=== PATIENT | female | born 1985 | race Caucasian/White ===

== ENCOUNTER 2020-04-26 13:17 | Emergency (ER) | payer BC, MEDICAID ==
[~2020-04-26] VITALS: Ht 172.7 cm; Wt 89.8 kg
[2020-04-26 13:17] VITALS: BP_SYST 111
[~2020-04-26 13:17] MED LIST: PREN1TAB49 PO
--- NOTE | 2020-04-26 15:30 | NUR ---
Patient to ER bed 8 to gown for evaluation. Side rails up. Report given to Brett MACIAS.
--- NOTE | 2020-04-26 15:40 | NUR ---
Pt came to ER for L knee pain for the last few weeks and lower abd cramping. Pt resting in [facility], [facility], no other complaints
--- NOTE | 2020-04-26 15:45 | NUR ---
DWIGHT Reece at bedside examining patient.
[2020-04-26 16:09] LABS: BASOPHILS % (AUTO) 0.5 % (0.0-2.0); EOSINOPHILS # (AUTO) 0.2 K/uL (0.0-0.4); EOSINOPHILS % (AUTO) 2.5 % (0.0-4.0); HEMATOCRIT 36.7 % (36-48); HEMOGLOBIN 12.3 g/dL (12.0-16.0); LYMPHOCYTES # (AUTO) 1.7 K/uL (1.0-5.5); LYMPHOCYTES % (AUTO) 21.7 % (20.5-51.5); MEAN CORPUSCULAR HEMOGLOBIN 29 pg (27-31); MEAN CORPUSCULAR HGB CONC 34 % (32-36); MEAN CORPUSCULAR VOLUME 86 fL (79.0-98.0); MONOCYTES # (AUTO) 0.3 K/uL (0.0-1.0); MONOCYTES % (AUTO) 4.1 % (1.7-9.3); NEUTROPHILS # (AUTO) 5.7 K/uL (1.8-7.7); NEUTROPHILS % (AUTO) 71.2 % (40.0-70.0); PLATELET COUNT (AUTO) 312 K/uL (130-430); RED BLOOD CELL COUNT(AUTO) 4.28 MIL/uL (4.2-6.2); RED CELL DISTRIBUTION WIDTH 14.6 % (9.0-15.0)
[2020-04-26 16:24] LABS: CALCIUM 8.8 mg/dL (8.4-11.0); CREATININE 0.65 mg/dL (0.55-1.30); POTASSIUM 3.9 mmol/L (3.5-5.1)
--- NOTE | 2020-04-26 16:42 | NUR ---
[facility] at [facility] time VSS no distress
[2020-04-26 16:52] LABS: BILIRUBIN,URINE NEGATIVE (NEGATIVE); BLOOD, URINE 2+ (NEGATIVE); COLOR,URINE YELLOW (YELLOW); GLUCOSE,URINE NEGATIVE (NEGATIVE); KETONES,URINE NEGATIVE (NEGATIVE); LEUKOCYTE ESTERASE ,URINE 2+ (NEGATIVE); NITRITE, URINE NEGATIVE (NEGATIVE); PH,URINE 6.5 (5.0-8.0); PROTEIN URINE NEGATIVE (NEGATIVE)
[2020-04-26 17:00] LABS: CLARITY/URINE HAZY (CLEAR)
[2020-04-26 17:01] LABS: BACTERIA,URINE MODERATE /HPF (None Seen); MUCUS,URINE 1+ /LPF (None Seen); WBC,URINE 20-50 /HPF (0-3)
[2020-04-26 17:35] VITALS: BP_SYST 111
--- NOTE | 2020-04-26 17:36 | NUR ---
Patient given written and verbal discharge instructions and verbalizes understanding. ER MD discussed with patient the results and treatment provided. Patient in stable condition. ID arm band removed. Rx of Cephalexin given. Patient educated on pain management and to follow up with PMD. Pain Scale 0/10. Opportunity for questions provided and answered. Medication side effect fact sheet provided.
== END 2020-04-26 17:35 | disposition home or self-care (01) ==
LOC: SED 13:17
DX: O26.891 Other specified pregnancy related conditions, first trimester (principal); M25.561 Pain in right knee; Z3A.01 Less than 8 weeks gestation of pregnancy
CPT/HCPCS: 36415; 76801; 76817; 80048; 81000-TC; 84702-TC; 85025; 86886; 86900; 86901; 87086; 93971; 99285

== ENCOUNTER 2020-06-08 11:29 | Emergency (ER) | payer BC ==
[~2020-06-08] VITALS: Ht 172.7 cm; Wt 89.8 kg
[2020-06-08 11:46] VITALS: BP_SYST 124
[2020-06-08] MEDS ORDERED: ACETAMINOPHEN 325 MG TABLET PO ONE (12:15)
[2020-06-08 12:31] LABS: BASOPHILS % (AUTO) 0.5 % (0.0-2.0); EOSINOPHILS # (AUTO) 0.4 K/uL (0.0-0.4); EOSINOPHILS % (AUTO) 5.5 % (0.0-4.0); HEMATOCRIT 33.5 % (36-48); HEMOGLOBIN 11.7 g/dL (12.0-16.0); LYMPHOCYTES # (AUTO) 1.4 K/uL (1.0-5.5); LYMPHOCYTES % (AUTO) 18.8 % (20.5-51.5); MEAN CORPUSCULAR HEMOGLOBIN 30 pg (27-31); MEAN CORPUSCULAR HGB CONC 35 % (32-36); MEAN CORPUSCULAR VOLUME 86 fL (79.0-98.0); MONOCYTES # (AUTO) 0.3 K/uL (0.0-1.0); MONOCYTES % (AUTO) 4.3 % (1.7-9.3); NEUTROPHILS # (AUTO) 5.3 K/uL (1.8-7.7); NEUTROPHILS % (AUTO) 70.9 % (40.0-70.0); PLATELET COUNT (AUTO) 269 K/uL (130-430); RED CELL DISTRIBUTION WIDTH 13.6 % (9.0-15.0); WHITE BLOOD COUNT (AUTO) 7.5 K/uL (4.8-10.8)
[2020-06-08 13:18] LABS: CALCIUM 8.8 mg/dL (8.4-11.0); CREATININE 0.59 mg/dL (0.55-1.30); POTASSIUM 3.8 mmol/L (3.5-5.1)
[2020-06-08 14:51] VITALS: BP_SYST 124
== END 2020-06-08 14:51 | disposition home or self-care (01) ==
LOC: SED 11:29
DX: O26.891 Other specified pregnancy related conditions, first trimester (principal); R10.2 Pelvic and perineal pain; Z3A.13 13 weeks gestation of pregnancy
CPT/HCPCS: 36415; 76801; 80048; 81002; 81025; 84702-TC; 85025; 86886; 86900; 86901; 99284

== ENCOUNTER 2021-12-14 16:24 | Emergency (ER) | payer BC ==
[~2021-12-14] VITALS: Ht 172.7 cm; Wt 94.8 kg
[~2021-12-14 16:24] MED LIST changes: +PRED20TA PO
[2021-12-14 16:30] VITALS: BP_SYST 100
--- NOTE | 2021-12-14 16:30 | NUR ---
Pt. came in with c/o pain to right elbow for 1 to 2 weeks with no known cause or acute injury, no swelling seen, rates pain 3/10
--- NOTE | 2021-12-14 16:30 | NUR ---
Patient to ER bed 7 for triage and evaluation. Side rails up. Report given to Nikhil.
--- NOTE | 2021-12-14 16:32 | NUR ---
ER at bedside examining patient.
[2021-12-14 16:50] LABS: BASOPHILS # (AUTO) 0.1 K/uL (0.0-0.2); BASOPHILS % (AUTO) 0.8 % (0.0-2.0); EOSINOPHILS # (AUTO) 0.2 K/uL (0.0-0.4); HEMATOCRIT 35.8 % (36-48); LYMPHOCYTES # (AUTO) 1.7 K/uL (1.0-5.5); LYMPHOCYTES % (AUTO) 20.8 % (20.5-51.5); MEAN CORPUSCULAR HEMOGLOBIN 27 pg (27-31); MEAN CORPUSCULAR HGB CONC 33 % (32-36); MEAN CORPUSCULAR VOLUME 80 fL (79.0-98.0); MONOCYTES # (AUTO) 0.5 K/uL (0.0-1.0); MONOCYTES % (AUTO) 5.9 % (1.7-9.3); NEUTROPHILS # (AUTO) 5.6 K/uL (1.8-7.7); NEUTROPHILS % (AUTO) 69.5 % (40.0-70.0); PLATELET COUNT (AUTO) 286 K/uL (130-430); RED BLOOD CELL COUNT(AUTO) 4.47 MIL/uL (4.2-6.2); RED CELL DISTRIBUTION WIDTH 14.7 % (9.0-15.0)
[2021-12-14] MEDS: KETOROLAC TROMETHAMINE 60 MG/2 ML VIAL IM ONE (17:03)
[2021-12-14 17:07] LABS: ANION GAP 8 (5-15); CALCIUM 8.1 mg/dL (8.4-11.0); CHLORIDE 102 mmol/L (98-107); CREATININE 0.64 mg/dL (0.55-1.30); GLUCOSE 83 mg/dL (70-99); POTASSIUM 4.1 mmol/L (3.5-5.1); SODIUM SERUM 137 mmol/L (136-145); UREA NITROGEN, BLOOD 9 mg/dL (8-21)
[2021-12-14 17:08] LABS: GFR AFRICAN AMERICAN 137 mL/min (>90)
[2021-12-14 17:11] LABS: ALANINE AMINOTRANSFERASE 86 U/L (12-78); ALBUMIN 3.3 g/dL (3.4-4.8); ASPARTATE AMINOTRANSFERASE 46 U/L (10-37); TOTAL BILIRUBIN 0.4 mg/dL (0.0-1.0); URIC ACID 5.4 mg/dL (2.4-7.0)
[2021-12-14 17:20] LABS: C-REACTIVE PROTEIN QUANT < 0.2 mg/dL (0-0.5)
--- NOTE | 2021-12-14 17:27 | NUR ---
Md aware that quant HCG back- stated to cancel urine dip.
[2021-12-14] MEDS ORDERED: HYDR-3917 PO (17:44)
[2021-12-14] MEDS ORDERED: IBUP-1969 PO (17:44)
--- NOTE | 2021-12-14 17:55 | NUR ---
Patient given written and verbal discharge instructions and verbalizes understanding. ER MD discussed with patient the results and treatment provided. Patient in stable condition. ID arm band removed. Rx of given. Patient educated on pain management and to follow up with PMD. Opportunity for questions provided and answered. Medication side effect fact sheet provided.
[2021-12-14 19:31] LABS: ERYTHROCYTE SEDIMENTATION RATE 13 MM/HR (0-20)
== END 2021-12-14 18:04 | disposition home or self-care (01) ==
LOC: SED 16:24
DX: M13.0 Polyarthritis, unspecified (principal); I10 Essential (primary) hypertension
CPT/HCPCS: 36415; 73080; 80053; 84550; 84703; 85025; 85651; 86140; 96372; 99284; J1885

== ENCOUNTER 2021-12-20 15:41 | Emergency (ER) | payer BC ==
[~2021-12-20] VITALS: Ht 172.7 cm; Wt 94.8 kg
[~2021-12-20 15:41] MED LIST changes: +HYDR-3917 PO; +IBUP-1969 PO
[2021-12-20 15:56] VITALS: BP_SYST 108
[2021-12-20] MEDS ORDERED: NAPR-1169 PO (17:45)
[2021-12-20 17:50] VITALS: BP_SYST 108
== END 2021-12-20 17:50 | disposition home or self-care (01) ==
LOC: SED 15:41
DX: M25.521 Pain in right elbow (principal)
CPT/HCPCS: 99282

== ENCOUNTER 2022-09-14 16:17 | Emergency (ER) | payer BC ==
[~2022-09-14] VITALS: Ht 172.7 cm; Wt 67.1 kg
[~2022-09-14 16:17] MED LIST changes: +NAPR-1169 PO
[2022-09-14 16:24] VITALS: BP_SYST 113
[2022-09-14 19:10] VITALS: BP_SYST 113
[2022-09-14] MEDS ORDERED: HYDR-3917 PO (20:06)
[2022-09-14] MEDS ORDERED: IBUP-1969 PO (20:06)
== END 2022-09-14 19:10 | disposition home or self-care (01) ==
LOC: SED 16:17
DX: S33.5XXA Sprain of ligaments of lumbar spine, initial encounter (principal); S60.221A Contusion of right hand, initial encounter; I10 Essential (primary) hypertension; Z79.899 Other long term (current) drug therapy; W10.9XXA Fall (on) (from) unspecified stairs and steps, initial encounter; Y93.89 Activity, other specified; Y92.89 Other specified places as the place of occurrence of the external cause; Y99.8 Other external cause status
CPT/HCPCS: 70450-TC; 72100-TC; 76376; 99284

== ENCOUNTER 2023-01-13 19:42 | Emergency (ER) | payer BC ==
[~2023-01-13] VITALS: Ht 172.7 cm; Wt 95.7 kg
[2023-01-13 20:13] VITALS: BP_SYST 118
[2023-01-13 20:22] VITALS: BP_SYST 132
[2023-01-13] MEDS ORDERED: KETOROLAC TROMETHAMINE 60 MG/2 ML VIAL IM ONE (22:00)
[2023-01-13] MEDS ORDERED: HYDR-3927 PO (22:13)
== END 2023-01-13 22:25 | disposition home or self-care (01) ==
LOC: SED 19:42
DX: M79.661 Pain in right lower leg (principal); R42 Dizziness and giddiness; Z79.899 Other long term (current) drug therapy
CPT/HCPCS: 99285; 93971; 96372; J1885

== ENCOUNTER 2023-10-19 19:06 | Emergency (ER) | payer OTHER, BC ==
[~2023-10-19] VITALS: Ht 172.7 cm; Wt 98.0 kg
[~2023-10-19 19:06] MED LIST changes: +HYDR-3927 PO
[2023-10-19 19:31] VITALS: BP_SYST 114; PULSE 82; RESP 16; TEMP 98.1; O2SAT 98
[2023-10-19] MEDS ORDERED: NAPR-688 PO (20:41)
== END 2023-10-19 20:55 | disposition home or self-care (01) ==
LOC: SED 19:06
DX: S46.092A Other injury of muscle(s) and tendon(s) of the rotator cuff of left shoulder, initial encounter (principal); Z79.899 Other long term (current) drug therapy; V89.2XXA Person injured in unspecified motor-vehicle accident, traffic, initial encounter; Y93.89 Activity, other specified; Y92.89 Other specified places as the place of occurrence of the external cause; Y99.8 Other external cause status
CPT/HCPCS: 73030; 99283